=== PATIENT | female | born 1970 | race Caucasian/White ===

== ENCOUNTER 2016-08-22 17:55 | Emergency (ER) | payer MEDICAID ==
--- NOTE | 2016-08-22 18:54 | ED Physician Chart ---
Chief Complaint/HPI - Patient Information Date Seen:: 08/22/16 Time Seen:: 18:35 Chief Complaint:: headaches History of Present Illness:: Patient had constant headache and intermittent dizziness since she sustained head trauma 10 days ago. She slipped on grease falling striking the left side of her face. Apparently the major contact was at the left eyebrow area. She sustained a 2-3 minute loss of consciousness. She fractured her left wrist also. She went to [facility] where a CAT scan was done and she was told it was okay. She also has some left-sided neck pain. Allergies:: Allergies Allergy/AdvReac Type Severity Reaction Status Date / Time No Known Allergies Allergy Verified 08/22/16 18:34 Vitals:: Vital Signs - 8 hr 08/22/16 18:30 Temp 98.6 F HR 79 RR 16 BP 118/75 O2 Sat % 99 Historian:: Patient Review:: Nurse's Note Reviewed Review of Systems - Review of Systems General/Constitutional: No fever Skin: Skin lesions Head: Headache Eyes: No loss of vision ENT: No earache Neck: Neck pain Cardio Vascular: No chest pain Pulmonary: No SOB GI: No nausea, No vomiting G/U: No dysuria, No frequency Musculoskeletal: Bone or joint pain Endocrine: No polyuria, No polydipsia Psychiatric: No prior psych history Hematopoietic: Bruising Allergic/Immuno: No urticaria Neurological: No focal symptoms Past Medical History - Past Medical History Past Medical History: No significant medical hx Family History: HTN Social History: Non Smoker, No Alcohol Surgical History: (2 D&C's and 2 sections) Psychiatricy History: None Medication: Reviewed Family Medical History - Family Member Father History Unknown: Yes Hx Family Hypertension: Yes Physical Exam - Physical Examination General/Constitutional: Well-developed, well-nourished, Alert, No distress Other Head comments:: Slight swelling left lateral eyebrow area with 2 mm crust Eyes: Lids, conjuctiva normal, PERRL Other Eyes comments:: Optic discs could not be visualized Skin: Nl inspection, No skin lesions, Well hydrated, No lymphadenopathy ENMT: External ears, nose nl, TM canals nl, Nasal exam nl, Oropharynx nl, Tonsils nl Other ENMT comments:: Lower teeth absent; partial plate and some upper teeth present Other Neck comments:: Range of motion of the neck: 70 forward flexion; 70 extension; 65 rotation; 20 left and 15 right lateral flexion Respiratory: Nl effort/Exclusion, Clear to Auscultation Cardio Vascular: RRR GI: No tenderness/rebounding/guarding, No organomegaly : No CVA tenderness Other Extremities comments:: Velcro splint is present right wrist Neuro/Psych: No focal deficits Labs/Radiology/EKG Results - Lab Results Results: CT of the head showed slight asymmetric low density of the left basal ganglia which may be due to volume averaging within normal limits. However a MRI of the brain is recommended for in the near future. Assessment - Assessment General Assessment: According to the patient's insurance if the patient were to be admitted Dr. Haynes would be the admitting doctor. Dr. Phan was paged at 8 PM but has not responded by about 8:[address] Randle was then called and informed of the CAT scan results and recommendation for a MRI of the brain in the near future. He said he will see the patient in 4 days and refer her to a neurologist. He stated he felt the patient had post-concussion syndrome, a diagnosis with which I agree. ED Septic Shock - . Is Septic Shock (SBP<90, OR Lactate>4 mmol\L) present?: No - <6hrs of presentation: Vital Signs: Vital Signs - 8 hr 08/22/16 18:30 Temp 98.6 F HR 79 RR 16 BP 118/75 O2 Sat % 99 Reassessment (Disposition) - Reassessment Reassessment Condition:: Unchanged - Diagnosis Diagnosis:: Post-concussion syndrome - Aftercare/Follow up Instructions Aftercare/Follow-Up Instructions:: Counseled pt regarding lab results/diagnosis & need follow up - Patient Disposition Discharge/Transfer:: Home Condition at Disposition:: Stable, Unchanged
--- NOTE | 2016-08-23 09:49 | Diagnostic Imaging Report ---
Head CT without intravenous contrast Indication: Headache, trauma Comparison: None Technique: Axial images were obtained from the vertex to the skull base without IV contrast. Coronal reconstructions were made. Total DLP: 561, CTDI33 FINDINGS: Images of the brain without demonstrate no evidence of an acute hemorrhage. There is slight increase low-density of the left basal ganglia region in relation to the right likely related to technical factors. No mass lesions identified. The ventricles and basal cisterns are patent. No mass effect or midline shift. No evidence of a skull fracture or soft tissue swelling. The visualized paranasal sinuses are clear. IMPRESSION: Slight subtle low density of the left basal ganglia probably related to technical factors. Small focus of ischemia or less likely subtle mass lesion is considered much less likely. Recommend correlation with patient's clinical history. If indicated short-term follow-up MRI may also be obtained. No evidence of acute intracranial hemorrhage.
== END 2016-08-22 20:54 | disposition home or self-care (01) ==
LOC: ER 17:55
DX: F07.81 Postconcussional syndrome (principal)
CPT/HCPCS: 70450-TC; 81025-TC; Z7502

== ENCOUNTER 2016-08-26 14:30 | Emergency (ER) | payer MEDICAID ==
--- NOTE | 2016-08-26 15:13 | ED Physician Chart ---
Chief Complaint/HPI - Patient Information Date Seen:: 08/26/16 Time Seen:: 15:00 Chief Complaint:: trauma from a fall History of Present Illness:: THIS IS A 45 YO FEMALE WHO IS HERE FOR A SECOND TIME SINCE THE August AND IS CONCERNED ABOUT PAIN IN HER HEAD AND FACE. SHE SUSTAINED AN INJURY TO HER FACE AND LOWER BODY FROM THE FALL WITH A LOSS OF CONSCIOUSNESS. Allergies:: Allergies Allergy/AdvReac Type Severity Reaction Status Date / Time erythromycin base Allergy Verified 08/26/16 14:48 promethazine [From Phenergan] Allergy Verified 08/26/16 14:48 Vitals:: Vital Signs - 8 hr 08/26/16 14:50 Temp 98.2 F HR 80 RR 17 BP 108/58 O2 Sat % 97 Historian:: Patient, Medical Records Review:: Nurse's Note Reviewed Review of Systems - Review of Systems General/Constitutional: No fever, No chills, No weight loss, Weakness, No diaphoresis, No edema, No loss of appetite Skin: No skin lesions, No rash, No bruising Head: Headache, No light-headedness Eyes: No loss of vision, No pain, No diplopia ENT: No earache, No nasal drainage, No sore throat, No tinnitus Neck: No neck pain, No swelling, No thyromegaly, No stiffness, No mass noted Cardio Vascular: No chest pain, No palpitations, No PND, No orthopnea, No edema Pulmonary: No SOB, No cough, No sputum, No wheezing GI: No nausea, No vomiting, No diarrhea, No pain, No melena, No hematochezia, No constipation, No hematemesis G/U: No dysuria, No frequency, No hematuria Musculoskeletal: No bone or joint pain, No back pain, No muscle pain Endocrine: No polyuria, No polydipsia Psychiatric: No prior psych history, No depression, No anxiety, No suicidal ideation Hematopoietic: No bruising, No lymphadenopathy Allergic/Immuno: No urticaria, No angioedema Neurological: No syncope, No focal symptoms, No weakness, No paresthesia, No headache, No seizure, No dizziness, No confusion, No vertigo Past Medical History - Past Medical History Obtainable: Yes Past Medical History: HTN, Arthritis Family History: None Social History: Non Smoker, No Alcohol, No Drug Use Surgical History: , other (CHEST TUBE PLACEMENT ON THE LEFT SIDE) Family Medical History - Family Member Father History Unknown: Yes Hx Family Hypertension: Yes ED Septic Shock - . Is Septic Shock (SBP<90, OR Lactate>4 mmol\L) present?: No - <6hrs of presentation: Vital Signs: Vital Signs - 8 hr 08/26/16 14:50 Temp 98.2 F HR 80 RR 17 BP 108/58 O2 Sat % 97 Reassessment (Disposition) - Reassessment Reassessment Condition:: Improved - Diagnosis Diagnosis:: HEAD TRAUMA URINARY TRACT INFECTION - Aftercare/Follow up Instructions Aftercare/Follow-Up Instructions:: Counseled pt regarding lab results/diagnosis & need follow up, Refer to Discharge Instructions, Counseled pt & family regarding lab results/diagnosis & need follow up - Patient Disposition Discharge/Transfer:: Home Condition at Disposition:: Improved ED Discharge Plan - Patient Disposition Admit/Discharge/Transfer: PT DISCHARGED HOME Condition at Disposition: Improved Instructions: Facial or Scalp Contusion, [id number], Urinary Tract Infection , [id number]
[2016-08-26 15:19] LABS: % BASOPHILS 0.8 % (0.0-2.0); % EOSINOPHILS 2.9 % (0.0-5.0); % LYMPHOCYTES 29.6 % (20.0-50.0); % MONOCYTES 7.6 % (2.0-10.0); % NEUTROPHILS 59.1 % (40.0-80.0); HEMATOCRIT 37.5 % (35.0-45.0); HEMOGLOBIN 12.6 gm/dL (11.7-15.5); MEAN CELL VOLUME 87.8 fl (81-100); MEAN CORPUSCULAR HEMOGLOBIN 29.6 pg (27.0-31.0); MEAN CORPUSCULAR HGB CONC 33.7 pg (28.0-36.0); MEAN PLATELET VOLUME 7.1 fl; NEUTROPHILE ABSOLUTE 3.4 Th/cmm (1.8-8.0); PLATELET COUNT 191 Th/cmm (150-400); RED BLOOD COUNT 4.27 Mil/cmm (3.80-5.10); RED CELL DISTRIBUTION WIDTH 15.4 % (11.5-20.0); WHITE BLOOD COUNT 5.7 Th/cmm (4.8-10.8)
[2016-08-26 15:33] LABS: ALKALINE PHOSPHATASE 77 U/L (34-104); ANION GAP 7.4 (7.0-16.0); BILIRUBIN,TOTAL 0.2 mg/dL (0.3-1.0); BUN - UREA NITROGEN 12 mg/dL (7-25); CALCIUM SERUM 9.3 mg/dL (8.6-10.3); CARBON DIOXIDE 24.5 mEq/L (21.0-31.0); CHLORIDE 105 mEq/L (98-107); CREATININE - SERUM 0.6 mg/dL (0.6-1.2); GLUCOSE 105 mg/dL (70-105); POTASSIUM SERUM 3.9 mEq/L (3.5-5.1); SGOT 14 U/L (13-39); SGPT/ALT 12 U/L (7-52); SODIUM SERUM 133 mEq/L (136-145)
[2016-08-26 15:34] LABS: CHOLESTEROL 190 mg/dL (<200); TRIGLYCERIDES 193 mg/dL (<150)
--- NOTE | 2016-08-26 16:13 | Diagnostic Imaging Report ---
CT scan of the brain without contrast History: Headache, trauma Total DLP equals 587 CTDI equals 33.1 Axial sections were obtained from the base of the skull to the vertex. There is a normal ventricular system size. No focal parenchymal lesions are seen. No evidence of any mass effect or shift of midline structures. No extra-axial masses or abnormal fluid collections. Impression: Negative examination
[2016-08-26 16:20] LABS: URINE BILIRUBIN NEGATIVE (NEGATIVE); URINE BLOOD TRACE (NEGATIVE); URINE COLOR STRAW; URINE GLUCOSE (UA) NEGATIVE (NEGATIVE); URINE KETONE NEGATIVE (NEGATIVE); URINE PH 5.5; URINE PROTEIN NEGATIVE (NEGATIVE); URINE UROBILINOGEN 0.2 E.U./dL (0.2 - 1.0)
[2016-08-26 16:21] LABS: URINE BACTERIA 1+ /hpf (NONE SEEN); URINE EPITHELIAL CELLS FEW /lpf (FEW)
== END 2016-08-26 17:28 | disposition home or self-care (01) ==
LOC: ER 14:30
DX: S09.90XA Unspecified injury of head, initial encounter (principal); N39.0 Urinary tract infection, site not specified; I10 Essential (primary) hypertension; Z88.1 Allergy status to other antibiotic agents; Z88.8 Allergy status to other drugs, medicaments and biological substances; W19.XXXA Unspecified fall, initial encounter; Y93.89 Activity, other specified; Y92.89 Other specified places as the place of occurrence of the external cause; Y99.8 Other external cause status
CPT/HCPCS: 99285; 96372 ×2; 70450; 84484; 36415; 84443; 85025; 87086; 81001; 81025; 80053; 80061; J1885; J0696; 71250-TC